=== PATIENT | male | born 1950 | race Caucasian/White ===

== ENCOUNTER 2019-08-18 06:34 | Day surgery (SDC) | payer MEDICARE, OTHER ==
[2019-08-15 10:52] VITALS: BMI 30.9
[~2019-08-18 06:34] MED LIST: LACTATED RINGERS 1,000 ML IV SCH; LIDOCAINE 1% 20 ML VIAL (10MG/ML) FOR IV START INTRADERMA PRN
[2019-08-18 06:55] VITALS: TEMP 98.3
[2019-08-18 07:03] LABS: Glucose,Whole Blood 116 mg/dL (75-99)
[2019-08-18] MEDS ORDERED: PROPOFOL 10 MG/ML 20 ML VIAL IV ONE (07:48)
--- NOTE | 2019-08-18 07:53 | P.GSHP ---
History of Present Illness H&P Date: 08/18/19 Chief Complaint: Screening colonoscopy This a 68-year-old male who presents today for screening colonoscopy. Patient denies any significant GI complaints. Past Medical History Past Medical History: Diabetes Mellitus, GERD/Reflux, Musculoskeletal Disorder, Seizure Disorder Additional Past Medical History / Comment(s): CP, has not had a seizure in "many years" History of Any Multi-Drug Resistant Organisms: None Reported Past Surgical History: Joint Replacement, Orthopedic Surgery Additional Past Surgical History / Comment(s): right knee replaced, left heel shortening Past Anesthesia/Blood Transfusion Reactions: No Reported Reaction Smoking Status: Never smoker - Past Family History Father Family Medical History: Cancer Medications and Allergies Home Medications Medication Instructions Recorded Confirmed Type Citalopram Hydrobromide [CeleXA] 20 mg PO DAILY 08/15/19 08/18/19 History Ranitidine HCl [Zantac] 150 mg PO BID 08/15/19 08/18/19 History metFORMIN HCL [Glucophage] 500 mg PO DAILY 08/15/19 08/18/19 History Allergies Allergy/AdvReac Type Severity Reaction Status Date / Time No Known Allergies Allergy Verified 08/18/19 06:51 Surgical - Exam Vital Signs Temp Pulse Resp BP Pulse Ox 98.3 F 68 19 140/84 97 08/18/19 06:54 08/18/19 06:54 08/18/19 06:54 08/18/19 06:54 08/18/19 06:54 - General well developed, well nourished, no distress - Eyes PERRL - ENT normal pinna - Neck no masses - Respiratory normal expansion - Cardiovascular Rhythm: regular - Abdomen Abdomen: soft, non tender Results - Labs Abnormal Lab Results - Last 24 Hours (Table) 08/18/19 Range/Units 06:57 POC Glucose (mg/dL) 116 H (75-99) mg/dL Assessment and Plan Assessment: We'll perform screening colonoscopy.
--- NOTE | 2019-08-18 08:04 | P.OP ---
Date of Procedure: 08/18/19 Preoperative Diagnosis: Screening colonoscopy Postoperative Diagnosis: Mild diverticulosis Procedure(s) Performed: Colonoscopy Anesthesia: MAC Surgeon: Ananth Hernandez Pathology: none sent Condition: stable Disposition: PACU Description of Procedure: The patient's placed on the endoscopy table in the lateral position. He received IV sedation. The digital rectal exam performed which revealed no abnormalities. The flexible colonoscope was then a stitch anus passed throughout the entire colon. The ileocecal valve was visualized. The cecum, ascending and transverse colon appeared normal. In the descending and sigmoid was mild diverticular changes. There is known to diverticulitis. Scope was th en brought back the rectum this appeared normal. Scope withdrawn for patient.
[2019-08-18 08:39] VITALS: BP 110/55; PULSE 66; RESP 20
== END 2019-08-18 08:57 | disposition home or self-care (01) ==
LOC: ORWHC2ENDO 06:34
PROVIDERS: ATTEND Surgery
DX: Z12.11 Encounter for screening for malignant neoplasm of colon (principal); E11.9 Type 2 diabetes mellitus without complications; K21.9 Gastro-esophageal reflux disease without esophagitis; Z79.84 Long term (current) use of oral hypoglycemic drugs; Z79.899 Other long term (current) drug therapy; Z80.9 Family history of malignant neoplasm, unspecified; K57.30 Diverticulosis of large intestine without perforation or abscess without bleeding; Z96.651 Presence of right artificial knee joint
CPT/HCPCS: J2704; G0121